=== PATIENT | male | born 1945 | race Caucasian/White ===

== ENCOUNTER 2021-08-12 20:12 | Inpatient (IN) | payer MEDICARE ==
[2021-08-12] MEDS ORDERED: SODIUM CHLORIDE 0.9% 1,000 ML IV STA (21:06)
[2021-08-12] MEDS ORDERED: MORPHINE SULFATE 4 MG/ML SYRINGE IV STA (21:06)
[2021-08-12] MEDS ORDERED: ONDANSETRON 4 MG/2 ML VIAL IVP STA (21:06)
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
[2021-08-12 21:50] LABS: Basophils # (A) 0.1 k/uL (0-0.2); Basophils % (A) 0 %; Eosinophils # (A) 0.1 k/uL (0-0.7); Eosinophils % (A) 1 %; HCT 48.5 % (39.0-53.0); HGB 15.2 gm/dL (13.0-17.5); Lymphocytes # (A) 1.4 k/uL (1.0-4.8); Lymphocytes % (A) 8 %; MCH 29.9 pg (25.0-35.0); MCHC 31.3 g/dL (31.0-37.0); MCV 95.5 fL (80.0-100.0); Monocytes # (A) 1.1 k/uL (0-1.0); Monocytes % (A) 7 %; Neutrophils # (A) 14.3 k/uL (1.3-7.7); Neutrophils % (A) 84 %; Platelet Count 247 k/uL (150-450); RBC 5.07 m/uL (4.30-5.90); RDW 12.6 % (11.5-15.5); WBC 17.1 k/uL (3.8-10.6)
--- NOTE | 2021-08-12 22:15 | XR ---
EXAMINATION TYPE: XR chest 1V DATE OF EXAM: 08/12/2021 COMPARISON: NONE HISTORY: Knee pain chest pain TECHNIQUE: Single view FINDINGS: Heart and mediastinum are within normal limits. Lungs are clear of infiltrate. No heart kristyn lure. There are no hilar masses. There are chest leads. Costophrenic angles are clear. IMPRESSION: No active cardiopulmonary disease.
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
[2021-08-12 22:46] LABS: ALT 16 U/L (4-49); AST 23 U/L (17-59); African American GFR (CKD) >90 (>60 ml/min/1.73 sqM); Albumin 3.9 g/dL (3.5-5.0); Alkaline Phosphatase 56 U/L (38-126); Anion Gap 9 mmol/L; Blood Urea Nitrogen 22 mg/dL (9-20); Calcium 8.8 mg/dL (8.4-10.2); Carbon Dioxide 19 mmol/L (22-30); Chloride 109 mmol/L (98-107); Glucose 111 mg/dL (74-99); Non-African American GFR(CKD) >90 (>60 ml/min/1.73 sqM); Sodium 137 mmol/L (137-145); Total Bilirubin 0.8 mg/dL (0.2-1.3); Total Protein 6.6 g/dL (6.3-8.2)
[2021-08-12] MEDS ORDERED: NALOXONE 0.4 MG/ML 1 ML VIAL IV PRN (22:48)
[2021-08-12] MEDS ORDERED: HEPARIN SODIUM,PORCINE/PF 5,000 UNIT/0.5 ML SYRINGE SQ STA (22:48)
[2021-08-12] MEDS ORDERED: ONDANSETRON 4 MG/2 ML VIAL IVP PRN (22:48)
[2021-08-12 22:57] LABS: Partial Thromboplastin Time 23.9 sec (22.0-30.0); Prothrombin Time 10.9 sec (9.0-12.0)
[2021-08-13] MEDS: SODIUM CHLORIDE 0.9% 1,000 ML IV SCH ×3 (00:34→14:35)
[2021-08-13] MEDS: MORPHINE SULFATE 4 MG/ML SYRINGE IV PRN ×3 (02:53→21:01)
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
[2021-08-13] MEDS ORDERED: NA PHOS,M-B/NA PHOS,DI-BA 133 ML ENEMA RECTAL PRN (09:28)
[2021-08-13] MEDS ORDERED: MAGNESIUM HYDROXIDE 2,400 MG/10 ML CUP PO PRN (09:28)
[2021-08-13] MEDS ORDERED: ACETAMINOPHEN TAB 325 MG TAB PO PRN (09:28)
[2021-08-13] MEDS ORDERED: traMADol 50 MG TAB PO PRN (09:28)
[2021-08-13] MEDS ORDERED: HYDROmorphone 0.5 MG/0.5 ML SYRINGE IVP PRN ×3 (09:28)
[2021-08-13] MEDS ORDERED: ONDANSETRON 4 MG/2 ML VIAL IVP PRN (09:28)
[2021-08-13] MEDS ORDERED: HYDROcodone/APAP 5-325MG 1 EACH TAB PO PRN (09:28)
[2021-08-13] MEDS ORDERED: bisacodyL 10 MG SUPP RECTAL PRN (09:28)
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
[2021-08-13 10:03] LABS: HCT 42.7 % (39.0-53.0); HGB 13.6 gm/dL (13.0-17.5); MCH 31.3 pg (25.0-35.0); MCHC 31.8 g/dL (31.0-37.0); MCV 98.3 fL (80.0-100.0); Platelet Count 197 k/uL (150-450); RBC 4.34 m/uL (4.30-5.90); RDW 12.9 % (11.5-15.5); WBC 8.8 k/uL (3.8-10.6)
[2021-08-13 10:13] LABS: ALT 13 U/L (4-49); AST 20 U/L (17-59); African American GFR (CKD) >90 (>60 ml/min/1.73 sqM); Albumin 3.4 g/dL (3.5-5.0); Albumin/Globulin Ratio 1.3; Alkaline Phosphatase 43 U/L (38-126); Anion Gap 7 mmol/L; Blood Urea Nitrogen 15 mg/dL (9-20); Calcium 8.3 mg/dL (8.4-10.2); Carbon Dioxide 19 mmol/L (22-30); Chloride 110 mmol/L (98-107); Creatine Kinase 87 U/L (55-170); Globulin 2.7 g/dL; Glucose 102 mg/dL (74-99); Magnesium 1.8 mg/dL (1.6-2.3); Non-African American GFR(CKD) >90 (>60 ml/min/1.73 sqM); Phosphorus 2.9 mg/dL (2.5-4.5); Potassium 4.2 mmol/L (3.5-5.1); Sodium 136 mmol/L (137-145); Total Bilirubin 1.4 mg/dL (0.2-1.3); Total Protein 6.1 g/dL (6.3-8.2)
[2021-08-13 10:16] LABS: Partial Thromboplastin Time 25.9 sec (22.0-30.0); Prothrombin Time 10.9 sec (9.0-12.0)
[2021-08-13] MEDS ORDERED: SUCCINYLCHOLINE CHLORIDE 100 MG/5 ML SYR IV ONE (11:07)
[2021-08-13] MEDS ORDERED: SODIUM CHLORIDE 0.9% 100 ML with ceFAZolin 2 GM IV ONE ×2 (11:07)
[2021-08-13] MEDS ORDERED: HYDROmorphone (PF) 1 MG/ML ONE (11:07)
[2021-08-13] MEDS ORDERED: MIDAZOLAM 2 MG/2 ML VIAL ONE (11:07)
[2021-08-13] MEDS ORDERED: LACTATED RINGERS 1,000 ML IV ONE ×2 (11:07→12:28)
[2021-08-13] MEDS ORDERED: fentaNYL (PF) 50 MCG/ML 2 ML AMP ONE (11:07)
[2021-08-13] MEDS ORDERED: ePHEDrine 50 MG/ML 1 ML VIAL ONE (11:07)
[2021-08-13] MEDS ORDERED: PHENYLEPHRINE-0.9% NACL SYG 1,000 MCG/10 ML SYRINGE ONE (11:07)
[2021-08-13] MEDS ORDERED: PROPOFOL 10 MG/ML 20 ML VIAL IV ONE (11:07)
[2021-08-13] MEDS ORDERED: KETOROLAC 15 MG/ML 1 ML VIAL IVP ONE (13:09)
[2021-08-13] MEDS ORDERED: HYDROmorphone 0.5 MG/0.5 ML SYRINGE SQ ONE (13:11)
--- NOTE | 2021-08-13 13:33 | XR ---
Fluoroscopy INDICATION: Pain FINDINGS: Fluoroscopy time: 2 minutes 2 seconds. Images obtained: 7. IMPRESSIONS: 1. Documentation of fluoroscopy.
[2021-08-13] MEDS: LACTATED RINGERS 1,000 ML IV SCH ×2 (14:35→21:01)
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
[2021-08-13] MEDS: SENNOSIDES-DOCUSATE SODIUM 1 EACH TAB PO SCH (21:01)
[2021-08-13] MEDS: ASPIRIN 81 MG PO SCH (21:01)
[2021-08-14] MEDS: SODIUM CHLORIDE 0.9% 1,000 ML IV SCH ×3 (00:23→17:30)
[2021-08-14] MEDS: LACTATED RINGERS 1,000 ML IV SCH ×2 (05:25→17:27)
[2021-08-14] MEDS: MORPHINE SULFATE 4 MG/ML SYRINGE IV PRN (05:29)
[2021-08-14] MEDS: ASPIRIN 81 MG PO SCH ×2 (07:51→20:56)
[2021-08-14] MEDS: HYDROcodone/APAP 10-325MG 1 EACH TAB PO PRN (07:55)
[2021-08-14 11:49] LABS: Basophils # (A) 0.06 X 10*3/uL (0.00-0.10); Basophils % (A) 0.7 %; Eosinophils # (A) 0.17 X 10*3/uL (0.04-0.35); Eosinophils % (A) 1.9 %; HCT 38.9 % (39.6-50.0); HGB 12.5 g/dL (13.0-17.0); Immature Grans, Automated 0.3 %; Lymphocytes % (A) 16.8 %; MCHC 32.1 g/dL (32.0-37.0); MCV 96.5 fL (80.0-97.0); Monocytes # (A) 1.29 X 10*3/uL (0.20-1.00); Monocytes % (A) 14.4 %; NRBC Per 100 WBC 0 /100 WBCS (0.0-0.0); Neutrophils # (A) 5.88 X 10*3/uL (1.80-7.70); Neutrophils % (A) 65.9 %; Platelet Count 178 X 10*3/uL (140-440); RBC 4.03 X 10*6/uL (4.40-5.60); RDW 12.6 % (11.5-14.5); WBC 8.93 X 10*3/uL (4.50-10.00)
[2021-08-14] MEDS: MULTIVITAMINS, THERA 1 EACH TAB PO SCH (12:26)
[2021-08-14] MEDS: lisinopriL 20 MG TAB PO SCH (17:32)
[2021-08-14] MEDS: allopurinoL 100 MG TAB PO SCH (17:32)
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
--- NOTE | 2021-08-14 20:23 | P.PN ---
Subjective Progress Note Date: 08/14/21 Principal diagnosis: left distal femur fracture Patient is seen at bedside this morning. He is postop day #1 from retrograde femoral nail for left distal femur fracture. He has pain at the surgical site as expected but denies any new complaints. He denies numbness, tingling or calf pain. Review of systems is negative for fever, chills, chest pain, shortness of breath or other Objective - Vital Signs Vital signs: Vital Signs Temp 98.1 F 08/14/21 11:08 Pulse 73 08/14/21 11:08 Resp 18 08/14/21 11:08 BP 111/76 08/14/21 11:08 Pulse Ox 99 08/14/21 04:00 Intake & Output 08/13/21 08/14/21 08/14/21 18:59 06:59 18:59 Intake Total 2660 900 780 Output Total 25 Balance 2635 900 780 Intake: IV 1100 Intake, IV Titration 1560 900 Amount Sodium Chloride 0.9% 1, 900 000 ml @ 130 mls/hr IV . Q7H42M [facility] Rx#:[id number] Sodium Chloride 0.9% 1, 1560 000 ml @ 130 mls/hr IV . Q7H42M [facility] Rx#:[id number] Oral 780 Output: Estimated Blood Loss 25 Other: Voiding Method Urinal Urinal Urinal # Voids 1 5 - Exam Inspection reveals a benign surgical wound. There is no active bleeding or drainage. Neurovascular status is intact throughout the lower extremity with motor and sensation fully intact. Calf is soft and nontender. 2+ dorsalis pedis pulse and less than 2 second cap refill is present. - Constitutional General appearance: Present: no acute distress - Labs CBC & Chem 7: 08/14/21 05:31 08/13/21 09:35 Labs: Abnormal Lab Results - Last 24 Hours (Table) 08/14/21 Range/Units 05:31 RBC 4.03 L (4.40-5.60) X 10*6/uL Hgb 12.5 L (13.0-17.0) g/dL Hct 38.9 L (39.6-50.0) % Monocytes # 1.29 H (0.20-1.00) X 10*3/uL Assessment and Plan (1) Closed fracture of left distal femur Narrative/Plan: He will continue with routine postop orthopedic protocol including pain management, wound care, PT, DVT prophylaxis and medical management. Expect that he will transfer to ECF in next 1-2 days Current Visit: Yes Status: Acute Priority: Medium Code(s): S72.402A - UNSP FRACTURE OF LOWER END OF LEFT FEMUR, INIT FOR CLOS FX SNOMED Code(s): 506453668 Time with Patient: Less than 30
[2021-08-14] MEDS: SENNOSIDES-DOCUSATE SODIUM 1 EACH TAB PO SCH (20:56)
[2021-08-15] MEDS: HYDROcodone/APAP 10-325MG 1 EACH TAB PO PRN ×2 (00:09→09:45)
[2021-08-15] MEDS: SODIUM CHLORIDE 0.9% 1,000 ML IV SCH ×2 (01:15→05:14)
[2021-08-15 04:37] VITALS: BP 95/66; PULSE 64; RESP 16; TEMP 97.5
[2021-08-15] MEDS: LACTATED RINGERS 1,000 ML IV SCH (06:05)
[2021-08-15 09:00] LABS: African American GFR (CKD) >90 (>60 ml/min/1.73 sqM); Anion Gap 4 mmol/L; Blood Urea Nitrogen 9 mg/dL (9-20); Calcium 7.9 mg/dL (8.4-10.2); Carbon Dioxide 23 mmol/L (22-30); Chloride 107 mmol/L (98-107); Glucose 84 mg/dL (74-99); Non-African American GFR(CKD) >90 (>60 ml/min/1.73 sqM); Potassium 3.5 mmol/L (3.5-5.1); Sodium 134 mmol/L (137-145)
[2021-08-15] MEDS: ASPIRIN 81 MG PO SCH (09:45)
[2021-08-15] MEDS: MULTIVITAMINS, THERA 1 EACH TAB PO SCH (09:45)
[2021-08-15] MEDS: allopurinoL 100 MG TAB PO SCH (09:46)
[2021-08-15] MEDS: lisinopriL 20 MG TAB PO SCH (09:46)
--- NOTE | 2021-08-15 11:04 | P.DS ---
Providers Date of admission: 08/13/21 00:06 Expected date of discharge: 08/15/21 Attending physician: Albaro Kate Consults: 08/12/21 22:48 Consult Physician Urgent Consulting Provider: Abraham Gunderson Consult Reason/Comments: Medical management Do you want consulting provider notified?: Yes Primary care physician: Arpan Pancho - Discharge Diagnosis(es) (1) Closed fracture of left distal femur Patient was admitted to the OR on 08/13/21 to undergo retrograde femoral nail for left distal femur fracture. Patient understood risks, possible complications and benefits and desired to proceed with elective surgery after given informed consent. He underwent the above procedure which he tolerated well without complication. Postoperative hospital course has remained without complication. On day of discharge he is afebrile, vital signs stable, labs within acceptable ranges, tolerating by mouth meds and diet, voiding without difficulty, positive flatus, denies abdominal pain or calf pain, pain is controlled on oral pain medication and has no new complaints. Wound is benign, neurovascular status is intact, calves are soft and nontender, abdomen soft and nontender. Review of systems is negative for numbness, tingling, fever, chills, chest pain, shortness of breath, nausea, vomiting, dizziness, headaches, slurred speech or other. Current Visit: Yes Status: Acute Priority: Medium Procedures: Retrograde femoral nail for left distal femur fracture Patient Condition at Discharge: Good Plan - Discharge Summary Discharge Rx Participant: No New Discharge Prescriptions: New Aspirin [Adult Low Dose Aspirin EC] 81 mg PO BID #60 tab HYDROcodone/APAP 5-325MG [[place] 5-325] 1 tab PO Q4HR PRN #42 tab PRN Reason: Pain Docusate [Colace] 100 mg PO BID #60 capsule No Action Cholecalciferol [Vitamin D3 (25 Mcg = 1000 Iu)] 50 mcg PO DAILY Multivit-Min/FA/Lycopen/Lutein [Centrum Silver Men Tablet] 1 tab PO DAILY Allopurinol [Zyloprim] 100 mg PO DAILY lisinopriL [Prinivil] 20 mg PO DAILY Discharge Medication List Allopurinol [Zyloprim] 100 mg PO DAILY 08/12/21 [History] Cholecalciferol [Vitamin D3 (25 Mcg = 1000 Iu)] 50 mcg PO DAILY 08/12/21 [History] Multivit-Min/FA/Lycopen/Lutein [Centrum Silver Men Tablet] 1 tab PO DAILY 08/12/21 [History] lisinopriL [Prinivil] 20 mg PO DAILY 08/12/21 [History] Aspirin [Adult Low Dose Aspirin EC] 81 mg PO BID #60 tab 08/15/21 [Rx] Docusate [Colace] 100 mg PO BID #60 capsule 08/15/21 [Rx] HYDROcodone/APAP 5-325MG [[place] 5-325] 1 tab PO Q4HR PRN #42 tab 08/15/21 [Rx] Follow up Appointment(s)/Referral(s): Arpan Deleon MD [Primary Care Provider] - 1-2 days Albaro Kate MD [STAFF PHYSICIAN] - 10 Days Activity/Diet/Wound Care/Special Instructions: Touch down Weight bear with walker at all times May shower after 3 days if no bleeding Keep wound clean and dry Take meds as directed Solomon out at post op day 10. On or around August 24, 2021 F/U with Dr. Kate in office Discharge Disposition: TRANSFER TO SNF/ECF
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
== END 2021-08-15 14:42 | DRG 482 ==
LOC: EC 20:12 → 5NMEDONC 08-13 00:06
PROVIDERS: ADMIT Orthopaedic Surgery Sports Medicine; ATTEND Orthopaedic Surgery Sports Medicine
PROC: 0QS906Z Reposition Left Femoral Shaft with Intramedullary Internal Fixation Device, Open Approach (ICD-10-PCS; principal; 2021-08-13 10:15)
DX: S72.302A Unspecified fracture of shaft of left femur, initial encounter for closed fracture (principal); D72.829 Elevated white blood cell count, unspecified; E86.0 Dehydration; I10 Essential (primary) hypertension; M10.9 Gout, unspecified; W23.0XXA Caught, crushed, jammed, or pinched between moving objects, initial encounter; Z79.899 Other long term (current) drug therapy
CPT/HCPCS: 29505; 36415; 71045; 72170; 80048; 80053; 82550; 83735; 84100; 85025; 85027; 85610; 85730; 86850; 86900; 86901; 93005; 96361; 96374; 96375; 99285